=== PATIENT | female | born 1985 | race Hispanic/Latino ===

== ENCOUNTER 2021-08-17 18:38 | Emergency (ER) | payer BC, OTHER ==
[2021-08-17 19:07] LABS: #Eosinphils 0.1 10x3/uL (0.0-0.5); #Monocytes 0.7 10x3/uL (0.0-1.1); #Neutrophils 5.3 10x3/uL (1.5-8.4); %Basophils 0.3 % (0.0-2.0); %Eosinophils 0.6 % (0.0-6.0); %Lymphocytes 32.3 % (18.0-47.0); %Monocytes 7.6 % (0.0-10.0); Hemoglobin 12.5 g/dL (12.0-15.5); Mean Corpuscular HGB CONC 32.6 g/dL (32.0-36.0); Mean Corpuscular Hemoglobin 27.1 pg (27.0-33.0); Mean Corpuscular Volume 83.1 fl (81.6-98.3); Mean Platelet Volume 10.8 fl (7.4-10.4); Platelet Count 245 10x3/uL (150-450); RBC Distribution Width 13.5 % (11.5-14.5); Red Blood Cell (RBC) Count 4.61 10x6/uL (3.90-5.03); White Blood Cell (WBC) Count 8.9 10x3/uL (3.5-10.5)
[2021-08-17 19:08] LABS: Bilirubin Neg (Negative); Blood, Urine 25 (Negative); Clarity Clear (Clear); Glucose, Urine (Dipstick) Normal (Negative); Ketone, Urine Negative (Negative); Leukocyte Negative (Negative); Nitrite Negative (Negative); Protein, Urine (Dipstick) 15 mg/dl (Neg-Trace); Specific Gravity, Urine 1.025 (1.002-1.036)
[2021-08-17 19:15] LABS: RBC/HPF 0-3 HPF (0-3); Squamous Epithelial 0-3 HPF (0-3); WBC/HPF None Seen HPF (0-3)
[2021-08-17 19:16] LABS: Bacteria/HPF None Seen HPF (None Seen)
[2021-08-17 19:21] LABS: ALT (SGPT) 10 U/L (8-55); AST (SGOT) 16 U/L (5-34); Albumin 4.2 g/dL (3.5-5.0); Alkaline Phosphatase 77 U/L (40-110); Anion Gap 12 mmol/L (10-20); BUN (Urea Nitrogen) 13 mg/dL (7.0-18.7); Bilirubin, Total 0.4 mg/dL (0.2-1.2); Calc. Creatinine Clearance 0 mL/min (70-130); Calcium 9.3 mg/dL (7.8-10.44); Carbon Dioxide 26 mmol/L (22-29); Chloride 106 mmol/L (98-107); Globulin 2.9 g/dL (2.4-3.5); Glucose 122 mg/dL (70-105); Potassium 4.2 mmol/L (3.5-5.1); Protein, Total 7.1 g/dL (6.0-8.3); Sodium 140 mmol/L (136-145)
== END 2021-08-17 21:26 | disposition home or self-care (01) ==
LOC: CSHERS 18:38
DX: O99.891 Other specified diseases and conditions complicating pregnancy (principal); R10.2 Pelvic and perineal pain; Z3A.01 Less than 8 weeks gestation of pregnancy; O99.281 Endocrine, nutritional and metabolic diseases complicating pregnancy, first trimester
CPT/HCPCS: 76856; 80053; 81003; 81015; 84702; 85025

== ENCOUNTER 2021-08-19 14:41 | Emergency (ER) | payer BC, OTHER | END 2021-08-19 16:45 | disposition home or self-care (01) | LOC: CSHERS 14:41 | DX: O20.0 Threatened abortion (principal); O99.280 Endocrine, nutritional and metabolic diseases complicating pregnancy, unspecified trimester | CPT/HCPCS: 36415; 84702; 99282 ==

== ENCOUNTER 2023-05-04 13:10 | Emergency (ER) | payer BC, OTHER ==
[2023-05-04 14:15] LABS: #Monocytes 0.6 10x3/uL (0.0-1.1); #Neutrophils 6.3 10x3/uL (1.5-8.4); %Basophils 0.2 % (0.0-2.0); %Eosinophils 0.2 % (0.0-6.0); %Lymphocytes 18.5 % (18.0-47.0); %Monocytes 7.1 % (0.0-10.0); %Neutrophils 73.2 % (40.0-75.0); Hematocrit 32.9 % (34.9-44.5); Hemoglobin 10.7 g/dL (12.0-15.5); Mean Corpuscular HGB CONC 32.5 g/dL (32.0-36.0); Mean Corpuscular Hemoglobin 26.8 pg (27.0-33.0); Mean Corpuscular Volume 82.3 fl (81.6-98.3); Platelet Count 192 10x3/uL (150-450); White Blood Cell (WBC) Count 8.6 10x3/uL (3.5-10.5)
[2023-05-04 14:27] LABS: ALT (SGPT) Less than 7 U/L (8-55); AST (SGOT) 13 U/L (5-34); Albumin 3.1 g/dL (3.5-5.0); Alkaline Phosphatase 138 U/L (40-110); Anion Gap 14 mmol/L (10-20); BUN (Urea Nitrogen) 9 mg/dL (7.0-18.7); Bilirubin, Total 0.4 mg/dL (0.2-1.2); Calc. Creatinine Clearance 0 mL/min (70-130); Calcium 8.3 mg/dL (7.8-10.44); Carbon Dioxide 20 mmol/L (22-29); Chloride 106 mmol/L (98-107); Estimated GFR 118; Globulin 2.9 g/dL (2.4-3.5); Glucose 153 mg/dL (70-105); Magnesium 1.6 mg/dL (1.6-2.6); Potassium 3.5 mmol/L (3.5-5.1); Sodium 136 mmol/L (136-145)
[2023-05-04 14:33] LABS: Troponin I 0.011 ng/mL (< 0.028)
== END 2023-05-04 14:51 | disposition home or self-care (01) ==
LOC: CSHERS 13:10
DX: O99.343 Other mental disorders complicating pregnancy, third trimester (principal); F41.9 Anxiety disorder, unspecified; O99.283 Endocrine, nutritional and metabolic diseases complicating pregnancy, third trimester; E03.9 Hypothyroidism, unspecified; O99.613 Diseases of the digestive system complicating pregnancy, third trimester; K21.9 Gastro-esophageal reflux disease without esophagitis; Z3A.35 35 weeks gestation of pregnancy
CPT/HCPCS: 71045; 80053; 83735; 84443; 84484; 85025; 93005; 93010; 99285

== ENCOUNTER 2023-05-31 13:31 | Day surgery (SDC) | payer BC ==
[2023-05-31 14:06] VITALS: BMI 43.0
[2023-05-31] MEDS ORDERED: hydrALAZINE 20 MG/ML VIAL SLOW IVP PRN (14:18)
[2023-05-31 15:39] LABS: Fetal Membranes Rupture No Membranes Rupture (No Rupture)
== END 2023-05-31 16:15 | disposition home or self-care (01) ==
LOC: CSHLD/OP 13:31
PROVIDERS: ATTEND Student in an Organized Health Care Education/Training Program
DX: O99.891 Other specified diseases and conditions complicating pregnancy (principal); M54.9 Dorsalgia, unspecified; R10.30 Lower abdominal pain, unspecified; Z90.89 Acquired absence of other organs; Z90.49 Acquired absence of other specified parts of digestive tract; Z98.84 Bariatric surgery status; Z79.899 Other long term (current) drug therapy; Z91.013 Allergy to seafood; Z88.0 Allergy status to penicillin; Z3A.38 38 weeks gestation of pregnancy
CPT/HCPCS: 84112; 87480; 87510; 87660